=== PATIENT | female | born 1945 | race Two or more races ===

== ENCOUNTER 2021-09-17 11:35 | Outpatient (CLI) | payer OTHER ==
[~2021-09-17 11:35] MED LIST: COSAMIN DS TAB1 EACH PO; COZAAR100 MG PO; MULTIPLE VITAM1 EAC2 PO
[2021-09-18] MEDS ORDERED: MACROBID 100 M100 MG PO (10:15)
== END 2021-09-17 11:41 | disposition home or self-care (01) ==
LOC: LAB 11:35
PROVIDERS: ATTEND Obstetrics & Gynecology Gynecology
DX: Z20.828 Contact with and (suspected) exposure to other viral communicable diseases (principal)

== ENCOUNTER 2021-09-18 10:34 | Day surgery (SDC) | payer OTHER ==
[~2021-09-18 10:34] MED LIST changes: +MACROBID 100 M100 MG PO
== END 2021-09-18 12:15 | disposition home or self-care (01) ==
LOC: CIR.AMB 10:34
PROVIDERS: ATTEND Obstetrics & Gynecology Gynecology
DX: R39.14 Feeling of incomplete bladder emptying (principal); R39.15 Urgency of urination; Z20.822 Contact with and (suspected) exposure to COVID-19
CPT/HCPCS: 57287; C1771